=== PATIENT | male | born 1990 | race Caucasian/White ===

== ENCOUNTER 2016-12-16 18:42 | Inpatient (IN) | payer OTHER ==
[2016-12-16] MEDS ORDERED: SODIUM CHLORIDE 0.9% 1,000 ML IV STA (19:34)
[2016-12-16] MEDS ORDERED: SODIUM CHLORIDE 0.9% 500 ML IV STA (19:34)
--- NOTE | 2016-12-16 19:37 | ED ---
General Adult HPI - General Chief complaint: Recheck/Abnormal Lab/Rx Stated complaint: abnormal labs Time Seen by Provider: 12/16/16 19:17 Source: patient, RN notes reviewed Mode of arrival: ambulatory Limitations: no limitations - History of Present Illness Initial comments: 26-year-old male presents for evaluation of nausea vomiting diarrhea. Patient noted over the past several days to have dark urine and light-colored stool. Patient's family member noticed that his eyes were starting to yellow. Patient does admit to one week history of vomiting. This has improved over the past several days. Patient had fever and chills during this time. Denies significant abdominal pain. No recent travel. Patient does consume alcohol several times a month, no heavy alcohol consumption. Patient is not on any medication. No history of Tylenol ingestion. Patient denies any known sick contacts. No recent tattoos. - Related Data Home Medications Medication Instructions Recorded Confirmed Multivitamins, Thera [Multivitamin 1 tab PO DAILY 12/16/16 12/16/16 (formulary)] Allergies Allergy/AdvReac Type Severity Reaction Status Date / Time acetaminophen [From Vicodin] Allergy Unknown Verified 12/16/16 19:22 hydrocodone [From Vicodin] Allergy Unknown Verified 12/16/16 19:22 melon Allergy Unknown Verified 12/16/16 19:22 elastic Allergy Unknown Uncoded 12/16/16 19:00 Review of Systems ROS Statement: Those systems with pertinent positive or pertinent negative responses have been documented in the HPI. ROS Other: All systems not noted in ROS Statement are negative. Past Medical History Past Medical History: Asthma History of Any Multi-Drug Resistant Organisms: None Reported Past Surgical History: No Surgical Hx Reported Past Psychological History: No Psychological Hx Reported Smoking Status: Current every day smoker Past Alcohol Use History: Occasional Past Drug Use History: None Reported General Exam Limitations: no limitations General appearance: alert, in no apparent distress Head exam: Present: atraumatic, normocephalic Eye exam: Present: normal appearance, PERRL, scleral icterus ENT exam: Present: normal exam, mucous membranes dry Neck exam: Present: normal inspection. Absent: tenderness, meningismus Respiratory exam: Present: normal lung sounds bilaterally. Absent: respiratory distress Cardiovascular Exam: Present: regular rate, normal rhythm GI/Abdominal exam: Present: soft. Absent: distended, tenderness, guarding Extremities exam: Present: normal inspection, normal capillary refill. Absent: pedal edema Back exam: Present: normal inspection, full ROM. Absent: tenderness Neurological exam: Present: alert, oriented X3 Psychiatric exam: Present: normal affect, normal mood Skin exam: Present: warm, dry, intact. Absent: cyanosis, diaphoretic Course Vital Signs 12/16/16 12/16/16 18:55 20:09 Temperature 98.1 F Pulse Rate 84 55 L Respiratory 20 16 Rate Blood Pressure 130/84 137/76 O2 Sat by Pulse 99 98 Oximetry Medical Decision Making - Medical Decision Making 26-year-old male with no significant past medical history presents with a one- week history of nausea vomiting, light stools and dark urine. Patient did have some abdominal pain. This is resolved. His nose and vomiting is improving. With urgent care and was sent here for evaluation. Laboratory studies reveal normal white blood cell count 15.3, INR is normal at 1.0, total bili is elevated at 5.6 with 2.7 being conjugated. AST is elevated as well as ALT. UA is positive for dark urine that is 1+ bilirubin. Ultrasound is obtained, shows gallbladder wall is 0.4 cm, normal common bile duct. No concern for cholecystitis at this time given vitals, normal white count, and no right upper quadrant abdominal pain. Hepatitis panel is pending. Patient will be admitted for IV hydration, GI evaluation. - Lab Data Result diagrams: 12/16/16 20:00 12/16/16 20:00 Lab Results 12/16/16 12/16/16 12/16/16 Range/Units 20:00 20:00 20:00 WBC 5.3 (3.8-10.6) k/uL RBC 4.51 (4.30-5.90) m/uL Hgb 13.8 (13.0-17.5) gm/dL Hct 41.3 (39.0-53.0) % MCV 91.6 (80.0-100.0) fL MCH 30.5 (25.0-35.0) pg MCHC 33.3 (31.0-37.0) g/dL RDW 13.1 (11.5-15.5) % Plt Count 162 (150-450) k/uL Neutrophils % 36 % Lymphocytes % 48 % Monocytes % 6 % Eosinophils % 5 % Basophils % 1 % Neutrophils # 1.9 (1.3-7.7) k/uL Lymphocytes # 2.5 (1.0-4.8) k/uL Monocytes # 0.3 (0-1.0) k/uL Eosinophils # 0.2 (0-0.7) k/uL Basophils # 0.1 (0-0.2) k/uL PT (9.0-12.0) sec INR (<1.2) APTT (22.0-30.0) sec Sodium 139 (137-145) mmol/L Potassium 3.5 (3.5-5.1) mmol/L Chloride 100 (98-107) mmol/L Carbon Dioxide 28 (22-30) mmol/L Anion Gap 11 mmol/L BUN 9 (9-20) mg/dL Creatinine 0.70 (0.66-1.25) mg/dL Est GFR (MDRD) Af Amer >60 (>60 ml/min/1.73 sqM) Est GFR (MDRD) Non-Af >60 (>60 ml/min/1.73 sqM) Glucose 101 H (74-99) mg/dL Plasma Lactic Acid Valentino 0.9 (0.7-2.0) mmol/L Calcium 9.5 (8.4-10.2) mg/dL Total Bilirubin 5.6 H (0.2-1.3) mg/dL Conjugated Bilirubin 2.7 H (0.0-0.3) mg/dL Unconjugated Bilirubin 0.9 (0.0-1.1) mg/dL Delta Bilirubin 2.0 H (0.0-0.2) mg/dL AST 1086 H (17-59) U/L ALT 1820 H (21-72) U/L Alkaline Phosphatase 238 H (38-126) U/L Total Protein 7.6 (6.3-8.2) g/dL Albumin 4.2 (3.5-5.0) g/dL Amylase 46 (30-110) U/L Lipase 59 (23-300) U/L Urine Color Urine Appearance (Clear) Urine pH (5.0-8.0) Ur Specific [place] (1.001-1.035) Urine Protein (Negative) Urine Glucose (UA) (Negative) Urine Ketones (Negative) Urine Blood (Negative) Urine Nitrite (Negative) Urine Bilirubin (Negative) Urine Urobilinogen (<2.0) mg/dL Ur Leukocyte Esterase (Negative) 12/16/16 12/16/16 Range/Units 20:00 20:31 WBC (3.8-10.6) k/uL RBC (4.30-5.90) m/uL Hgb (13.0-17.5) gm/dL Hct (39.0-53.0) % MCV (80.0-100.0) fL MCH (25.0-35.0) pg MCHC (31.0-37.0) g/dL RDW (11.5-15.5) % Plt Count (150-450) k/uL Neutrophils % % Lymphocytes % % Monocytes % % Eosinophils % % Basophils % % Neutrophils # (1.3-7.7) k/uL Lymphocytes # (1.0-4.8) k/uL Monocytes # (0-1.0) k/uL Eosinophils # (0-0.7) k/uL Basophils # (0-0.2) k/uL PT 10.4 (9.0-12.0) sec INR 1.0 (<1.2) APTT 23.5 (22.0-30.0) sec Sodium (137-145) mmol/L Potassium (3.5-5.1) mmol/L Chloride (98-107) mmol/L Carbon Dioxide (22-30) mmol/L Anion Gap mmol/L BUN (9-20) mg/dL Creatinine (0.66-1.25) mg/dL Est GFR (MDRD) Af Amer (>60 ml/min/1.73 sqM) Est GFR (MDRD) Non-Af (>60 ml/min/1.73 sqM) Glucose (74-99) mg/dL Plasma Lactic Acid Valentino (0.7-2.0) mmol/L Calcium (8.4-10.2) mg/dL Total Bilirubin (0.2-1.3) mg/dL Conjugated Bilirubin (0.0-0.3) mg/dL Unconjugated Bilirubin (0.0-1.1) mg/dL Delta Bilirubin (0.0-0.2) mg/dL AST (17-59) U/L ALT (21-72) U/L Alkaline Phosphatase (38-126) U/L Total Protein (6.3-8.2) g/dL Albumin (3.5-5.0) g/dL Amylase (30-110) U/L Lipase (23-300) U/L Urine Color Dark Yellow Urine Appearance Clear (Clear) Urine pH 8.0 (5.0-8.0) Ur Specific [place] 1.007 (1.001-1.035) Urine Protein Negative (Negative) Urine Glucose (UA) Negative (Negative) Urine Ketones Negative (Negative) Urine Blood Negative (Negative) Urine Nitrite Negative (Negative) Urine Bilirubin 1+ H (Negative) Urine Urobilinogen <2.0 (<2.0) mg/dL Ur Leukocyte Esterase Negative (Negative) Disposition Clinical Impression: Acute hepatitis Disposition: ADMITTED IP TO THIS [facility] Condition: Stable Referrals: Edda Hess DO [Primary Care Provider] - 1-2 days Decision to Admit Reason: Admit from EC Decision Date: 12/16/16 Decision Time: 21:47
[2016-12-16 20:18] LABS: Basophils # (A) 0.1 k/uL (0-0.2); Basophils % (A) 1 %; CH 30.9; CHCM 33.9; Eosinophils # (A) 0.2 k/uL (0-0.7); Eosinophils % (A) 5 %; HCT 41.3 % (39.0-53.0); HDW 2.69; HGB 13.8 gm/dL (13.0-17.5); Luc # (Auto) 0.21; Luc % (Auto) 4; Lymphocytes # (A) 2.5 k/uL (1.0-4.8); Lymphocytes % (A) 48 %; MCH 30.5 pg (25.0-35.0); MCHC 33.3 g/dL (31.0-37.0); MCV 91.6 fL (80.0-100.0); Mean Platelet Volume 8.5; Monocytes # (A) 0.3 k/uL (0-1.0); Monocytes % (A) 6 %; Neutrophils # (A) 1.9 k/uL (1.3-7.7); Neutrophils % (A) 36 %; RBC 4.51 m/uL (4.30-5.90); RDW 13.1 % (11.5-15.5); WBC 5.3 k/uL (3.8-10.6); WBC (Perox) 4.91
[2016-12-16 20:22] LABS: Appearance,Urine Clear (Clear); Bilirubin,Urine 1+ (Negative); Glucose,Urine (UA) Negative (Negative); Ketones,Urine Negative (Negative); Leukocyte Esterase,Urine Negative (Negative); Nitrite,Urine Negative (Negative); Protein,Urine Negative (Negative); Specific Gravity,Urine 1.007 (1.001-1.035); UA Billing (MACRO vs. MICRO) CHEM; Urobilinogen,Urine <2.0 mg/dL (<2.0)
[2016-12-16 20:27] LABS: Alkaline Phosphatase 238 U/L (38-126); Amylase 46 U/L (30-110); Anion Gap 11 mmol/L; Blood Urea Nitrogen 9 mg/dL (9-20); Calcium 9.5 mg/dL (8.4-10.2); Carbon Dioxide 28 mmol/L (22-30); Chloride 100 mmol/L (98-107); Glucose 101 mg/dL (74-99); Non-African American GFR(MDRD) >60 (>60 ml/min/1.73 sqM); Potassium 3.5 mmol/L (3.5-5.1); Sodium 139 mmol/L (137-145); Total Bilirubin 5.6 mg/dL (0.2-1.3); Total Protein 7.6 g/dL (6.3-8.2)
[2016-12-16 20:42] LABS: ALT 1820 U/L (21-72); AST 1086 U/L (17-59)
[2016-12-16 20:48] LABS: Partial Thromboplastin Time 23.5 sec (22.0-30.0); Prothrombin Time 10.4 sec (9.0-12.0)
--- NOTE | 2016-12-16 21:41 | US ---
EXAMINATION TYPE: US abdomen limited DATE OF EXAM: 12/16/2016 COMPARISON: NONE CLINICAL HISTORY: abdominal pain. EXAM MEASUREMENTS: Liver Length: 13.7 cm Gallbladder Wall: 0.4 cm CBD: 0.2 cm Right Kidney: 10.3 x 4.6 x 5.0 cm Nausea, vomiting and RUQ pain x 3 days. Pancreas: Tail obscured by overlying bowel gas, duct somewhat prominent at 3mm. This appears within normal limits at the level measured. Liver: wnl Gallbladder: wall slightly thickened, patient states he last ate 6 hours prior gallbladder appears c ontracted. Evidence for sonographic Rothman's sign: no CBD: wnl Right Kidney: wnl IMPRESSION: 1. Mild wall thickening of the gallbladder. The gallbladder appears somewhat contracted although slava ent is 6 hours nothing by mouth. Consider cholecystitis within the differential.
[2016-12-16] MEDS ORDERED: NALOXONE 0.4 MG/ML 1 ML VIAL IV PRN (21:43)
[2016-12-16] MEDS: SODIUM CHLORIDE 0.9% 1,000 ML IV SCH (21:54)
[2016-12-16] MEDS ORDERED: ONDANSETRON 4 MG/2 ML VIAL IVP STA (21:55)
[2016-12-16] MEDS ORDERED: FAMOTIDINE 20 MG/2 ML VIAL IV STA (22:40)
[2016-12-16 23:58] VITALS: BMI 23.6
[2016-12-17 07:16] LABS: Prothrombin Time 10.4 sec (9.0-12.0)
[2016-12-17 07:23] LABS: Aty Lym Flag Slight; CH 30.9; CHCM 32.7; HCT 37.9 % (39.0-53.0); HDW 2.64; HGB 12.4 gm/dL (13.0-17.5); MCH 30.9 pg (25.0-35.0); MCHC 32.6 g/dL (31.0-37.0); MCV 95.1 fL (80.0-100.0); Mean Platelet Volume 8.7; RBC 3.99 m/uL (4.30-5.90); RDW 13.2 % (11.5-15.5); WBC 4.9 k/uL (3.8-10.6); WBC (Perox) 4.32
[2016-12-17 07:39] LABS: Alkaline Phosphatase 194 U/L (38-126); Anion Gap 9 mmol/L; Blood Urea Nitrogen 5 mg/dL (9-20); Calcium 8.4 mg/dL (8.4-10.2); Carbon Dioxide 24 mmol/L (22-30); Chloride 107 mmol/L (98-107); Glucose 94 mg/dL (74-99); Non-African American GFR(MDRD) >60 (>60 ml/min/1.73 sqM); Potassium 3.9 mmol/L (3.5-5.1); Sodium 140 mmol/L (137-145); Total Bilirubin 5.3 mg/dL (0.2-1.3); Total Protein 6.2 g/dL (6.3-8.2)
[2016-12-17 07:42] LABS: Add Differential Manual Differential
[2016-12-17 07:44] LABS: Nucleated Red Blood Cells 0 /100 WBC (0-0); Polychromasia Present; Total Cells Counted 100
[2016-12-17 07:45] LABS: AST 749 U/L (17-59)
[2016-12-17 07:48] LABS: ALT 1375 U/L (21-72)
[2016-12-17] MEDS: SODIUM CHLORIDE 0.9% 1,000 ML IV SCH ×3 (08:16→22:26)
--- NOTE | 2016-12-17 11:26 | CONS ---
CONSULTATION DATE OF CONSULTATION: 12/17/2016 REQUESTING PHYSICIAN: Dr. Edda Michaels. REASON FOR CONSULTATION: Acute hepatitis. HISTORY OF PRESENT ILLNESS: The patient is a 26-year-old pleasant white male admitted to the hospital when he presented with nausea, vomiting, not feeling well for the last 1 week duration. He has some vague epigastric discomfort. Two days ago he started noticing yellowish discoloration of his skin as well as dark-colored urine. Some of the family members noticed that his eyes were also yellow and he came into the emergency room and subsequently admitted to the hospital with acute hepatitis, was noted to have acute elevation of serum transaminases. He denies any recent travel history. Denies any intravenous drug use. No recent blood transfusions. No antibiotic use. Denies taking any [id number] medications or prescription medications in the last few months. He reports no Tylenol intake. None of his household members have been sick recently. PAST MEDICAL HISTORY: Significant for asthma. PAST SURGICAL HISTORY: None. MEDICATIONS: At home none other than multivitamin. ALLERGIES: TO VICODIN. SOCIAL HISTORY: Chronic smoker but no alcohol use. FAMILY HISTORY: Unremarkable. REVIEW OF SYSTEMS: Cardiopulmonary: No chest pain, shortness of breath. Genitourinary: No dysuria, hematuria. Musculoskeletal unremarkable. Skin unremarkable. Psychiatric unremarkable. Neurology unremarkable. ENT vision unremarkable. Constitutional no recent weight loss. No fever, chills, night sweats. PHYSICAL EXAMINATION: Blood pressure is 109/60, pulse 61, temperature 97.8. HEENT examination unremarkable. Conjunctivae pink. Sclerae anicteric. Oral cavity no lesions. Neck: No jugular venous distention or lymph node enlargement. Chest clear to auscultation. HEART: Regular rate and rhythm. ABDOMEN: Soft, nontender, nondistended. Bowel sounds are positive. No organomegaly. Extremities: No pedal edema. Skin no rashes. NEUROLOGIC: Alert and oriented times three. No focal deficits. LABORATORY DATA: WBC 5.3, hemoglobin 13.8, platelets normal. PT/INR is within normal limits. AST 1086, ALT 1820, alkaline phosphatase 238, and T-bilirubin is 5.6. This morning T-bilirubin is 5.3, AST is down to 749, ALT is down to 1395. Amylase and Lipase are normal. IMPRESSION: The patient has vague abdominal pain associated with nausea, vomiting, diarrhea of one week duration and yellowish discoloration of skin for the last 2 days and noted to have elevated serum transaminases consistent with acute hepatitis, probably acute viral hepatitis. He has not taken any medications in the last several weeks including Tylenol and does not have any history of alcohol abuse. His serum transaminases are somewhat improved today and clinically patient appears very stable. RECOMMENDATION: 1. We will obtain hepatitis viral serologies for A, B, and C as well as VENTURA IgM antibody in view of lymphocytosis. 2. Advance to regular diet. 3. Await results of ultrasound of the abdomen and we will follow him closely during his hospital stay. Thank you for this consultation. KIM / BENN: [id number] /
--- NOTE | 2016-12-17 16:53 | HP ---
HISTORY AND PHYSICAL DATE OF ADMISSION: 12/16/16. DATE OF SERVICE: 12/17/16 PRESENTING COMPLAINT: Vomiting. HISTORY OF PRESENTING COMPLAINT: This is a pleasant 26-year-old, patient of Dr. Hess. The patient presents with nausea, vomiting and diarrhea going on for about a week. Patient noticed pale stools and dark colored urine. Was jaundice and decided to come in. 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 Patient in July of this year did get negative for STD. The patient is a male homosexual and the last unprotected sex was in September of this year x1. Now he has a new partner though his new partner has been negative for STDs. Patient also states he was tested negative for HIV. REVIEW OF SYSTEMS: CONSTITUTIONAL: Tired. HEENT: None. RESPIRATORY: None. CARDIOVASCULAR: None. GASTROINTESTINAL: Patient had abdominal pain, nausea, vomiting, diarrhea. GENITOURINARY: None. MUSCULOSKELETAL: None DERMATOLOGICAL: Tattoos. LYMPHATIC: None. PSYCHIATRY: None. NEUROLOGICAL: None. PAST MEDICAL HISTORY: Asthma. PAST SURGICAL HISTORY: None. SOCIAL HISTORY: Patient lives with his parents and brother and is sexually active with boyfriend called Pranav. He works at the [employer]. He smokes about 3 cigarettes a day. Occasional marijuana. Alcohol rarely. FAMILY HISTORY: Diabetes. HOME MEDICATIONS: Multivitamins. ALLERGIES: VICODIN, ELASTIC. PHYSICAL EXAMINATION: On examination, vital signs on presentation: Temperature 98.1, pulse 84, respirations 20, blood pressure 130/84, pulse ox 99% on room air. GENERAL APPEARANCE: Average built, lying in bed, tired appearing. EYES: Icterus present. Pupils equal. HEENT: External appearance of nose and ears normal. Oral cavity normal. NECK: JVD not raised. Mass not palpable. RESPIRATORY: Effort normal. Lungs are clear. CARDIOVASCULAR: 1st and 2nd sounds. No edema. ABDOMEN: Soft, mild upper quadrant tenderness. No guarding or rigidity. Liver and spleen not palpable. LYMPHATIC: No lymph node palpable in the neck or axillae. PSYCHIATRY: Alert and oriented x3. Mood and affect normal. NEUROLOGICAL: Pupils equal. Cranial nerves grossly intact. Power and sensation grossly intact. INVESTIGATIONS: Admission labs: White count 5.8, hemoglobin 13.8, platelets 162. Potassium 3.5. BUN and creatinine normal. Bilirubin 5.8, repeat 5.3. AST was 108, repeat 749. ALT 1820, repeat 1375. Alkaline phosphatase 238. Amylase and lipase normal. ASSESSMENT: 1. Acute hepatitis in a patient who has been in contact with close to 500 kids he says an could well be hepatitis A which is transfer of fecal oral route given that his other tests were negative makes this likely the culprit. Other causes do need to be ruled out. 2. Recreational marijuana use. 3. Dehydration clinically. PLAN: Patient's hepatitis panel will be sent off. Dr. Davis from GI was consulted. Patient will be put on IV fluids. The patient was told to have a soft diet. Care was discussed. MMLIUL / BENN: [id number] /
[2016-12-18 07:48] LABS: AST 528 U/L (17-59); Alkaline Phosphatase 229 U/L (38-126); Anion Gap 10 mmol/L; Blood Urea Nitrogen 5 mg/dL (9-20); Calcium 8.6 mg/dL (8.4-10.2); Carbon Dioxide 21 mmol/L (22-30); Chloride 110 mmol/L (98-107); Glucose 97 mg/dL (74-99); Non-African American GFR(MDRD) >60 (>60 ml/min/1.73 sqM); Potassium 4.1 mmol/L (3.5-5.1); Sodium 141 mmol/L (137-145); Total Protein 6.5 g/dL (6.3-8.2)
[2016-12-18 07:55] LABS: ALT 1196 U/L (21-72)
[2016-12-18 07:57] LABS: Aty Lym Flag Slight; CH 30.6; CHCM 32.2; HGB 12.8 gm/dL (13.0-17.5); MCH 30.6 pg (25.0-35.0); MCHC 31.9 g/dL (31.0-37.0); MCV 95.6 fL (80.0-100.0); Mean Platelet Volume 8.6; RBC 4.18 m/uL (4.30-5.90); RDW 13.5 % (11.5-15.5); WBC 5.9 k/uL (3.8-10.6)
[2016-12-18 08:26] LABS: Add Differential Manual Differential
[2016-12-18 08:32] LABS: Nucleated Red Blood Cells 0 /100 WBC (0-0); Total Cells Counted 100
[2016-12-18 08:34] LABS: Manual Review Performed; RBC Morphology Normal
[2016-12-18] MEDS: SODIUM CHLORIDE 0.9% 1,000 ML IV SCH ×3 (09:11→23:02)
--- NOTE | 2016-12-18 14:15 | PN ---
PROGRESS NOTE DATE OF SERVICE: 12/18/16 The patient is a 26-year-old pleasant white male admitted to the hospital with acute hepatitis, who presents to the hospital with abdominal discomfort, nausea, vomiting, flu-like symptoms for the last 1 week duration. He was noted to have elevated serum transaminases with ALT and AST in the range of 0989-4065. He had hepatitis serologies done and hepatitis A IgM antibody was reported as positive. He is better today. He denies any symptoms. No abdominal pain. No nausea, vomiting. PHYSICAL EXAMINATION: Appears comfortable in no apparent distress. VITAL SIGNS: Stable. Blood pressure is 119/62, pulse is 65, temperature 96.8. HEENT examination unremarkable. Conjunctivae pink. Sclerae anicteric. Oral cavity no lesions. Neck no jugular venous distention or lymph node enlargement. Chest was clear to auscultation. HEART: Regular rate and rhythm. ABDOMEN: Soft. Bowel sounds are positive. No organomegaly. Extremities no pedal edema. Skin no rashes. NEUROLOGIC: Alert and oriented x3. No focal deficits. LABS: From today, WBC 5.9, hemoglobin 12.8, platelets 177. AST 528, ALT 1196, T-bilirubin is 5, alkaline phosphatase is 229. INR 1. IMPRESSION: Acute hepatitis A infection with elevated serum transaminases. Clinically, patient is very stable. INR is 1 yesterday. Serum transaminases are gradually improving today AST is 528 and ALT is 196. RECOMMENDATIONS: Discussed with the patient about acute hepatitis A infection and his clinical condition and prognosis. Since he does not have any underlying liver disease the patient should have an excellent prognosis and full recovery in the next few weeks. We will repeat labs tomorrow morning and if stable, he can be discharged home with outpatient follow up in a week. MMODL / IJN: [id number] /
[2016-12-18] MEDS ORDERED: IBUPROFEN 400 MG TAB PO PRN (18:55)
[2016-12-19] MEDS: SODIUM CHLORIDE 0.9% 1,000 ML IV SCH ×2 (05:59→14:05)
--- NOTE | 2016-12-19 06:10 | PN ---
PROGRESS NOTE DATE OF SERVICE: December 18, 2016 PRESENTING COMPLAINT: Vomiting. INTERVAL HISTORY: This patient presented with acute hepatitis which now come back to be hepatitis A. Nausea and vomiting better. Patient started to eat a bit better. No abdominal pain. REVIEW OF SYSTEMS: Done for constitutional, cardiovascular, GI, pulmonary and relevant findings as above. CURRENT MEDICATIONS: Reviewed that include IV fluids. PHYSICAL EXAMINATION: Temperature 97.5, pulse 48, respiratory 18, blood pressure 123/67, pulse ox 98% on room air. Eyes icterus present. NECK: JVD not raised. Mass not palpable. Respiratory effort lungs are clear. Cardiovascular first and second sounds normal. No edema. ABDOMEN: Soft, nontender. Liver and spleen not palpable. PSYCHIATRY: Alert and oriented x3. Mood and affect normal. INVESTIGATIONS: White count 5.9. AST 528, ALT 1196. ASSESSMENT: 1. Acute hepatitis A severe infection, present on admission with biochemistry, slowly improving. 2. Recreational marijuana use. 3. Dehydration upon presentation. PLAN: Will repeat the labs in the morning. Otherwise patient doing better. Did discuss with Dr. Maya Davis. MMLIUL / IJN: [id number] /
[2016-12-19 07:37] VITALS: BP 137/78; PULSE 75; RESP 17; TEMP 97.1
[2016-12-19 10:08] LABS: ALT 959 U/L (21-72); AST 330 U/L (17-59); Alkaline Phosphatase 265 U/L (38-126); Anion Gap 10 mmol/L; Blood Urea Nitrogen 6 mg/dL (9-20); Calcium 8.8 mg/dL (8.4-10.2); Carbon Dioxide 23 mmol/L (22-30); Chloride 109 mmol/L (98-107); Glucose 134 mg/dL (74-99); Non-African American GFR(MDRD) >60 (>60 ml/min/1.73 sqM); Potassium 4.2 mmol/L (3.5-5.1); Sodium 142 mmol/L (137-145); Total Bilirubin 3.4 mg/dL (0.2-1.3); Total Protein 6.9 g/dL (6.3-8.2)
--- NOTE | 2016-12-19 10:42 | P.PN ---
Subjective Progress Note Date: 12/19/16 Principal diagnosis: Acute hepatitis A Admitted with acute hepatitis A. Feels well. Denies pain. Afebrile. Tolerating diet. Liver chemistries improving. Total bilirubin 3.4. EBV capsid Ag IgM antibody 61.8. Objective - Vital Signs Vital signs: Vital Signs Temp 97.1 F L 12/19/16 07:00 Pulse 75 12/19/16 07:00 Resp 17 12/19/16 07:00 BP 137/78 12/19/16 07:00 Pulse Ox 98 12/19/16 07:00 Intake & Output 12/18/16 12/19/16 12/19/16 18:59 06:59 18:59 Intake Total 240 Balance 240 Weight 67.5 kg Intake: Oral 240 Other: Voiding Method Toilet Toilet # Voids 1 2 # Bowel Movements 0 - Exam General appearance: The patient is alert, oriented, in no acute distress. Jaundice. HET: Head is normocephalic and atraumatic. Pupils are equal and reactive. Sclerae icterus. Oropharynx is clear without lesions. Neck: Supple without lymphadenopathy. Trachea midline. Heart: S1 S2. Regular rate and rhythm. Lungs: No crackles or wheezes are heard. Abdomen: Soft, nontender, nondistended with bowel sounds. No peritoneal signs. No palpable organomegaly or masses. Extremities: Normal skin color and turgor. No cyanosis, rash, ulceration, clubbing, or edema. Radial and pedal pulses are 2/4 bilaterally. Neurological: No focal deficits. Strength and sensation are grossly intact. - Labs CBC & Chem 7: 12/18/16 06:49 12/19/16 08:45 Labs: Abnormal Lab Results - Last 24 Hours (Table) 12/18/16 12/19/16 Range/Units 06:49 08:45 Chloride 109 H (98-107) mmol/L BUN 6 L (9-20) mg/dL Glucose 134 H (74-99) mg/dL Total Bilirubin 3.4 H (0.2-1.3) mg/dL AST 330 H (17-59) U/L ALT 959 H (21-72) U/L Alkaline Phosphatase 265 H (38-126) U/L EBV Capsid Ag IgM Ab 61.8 H (<36.0) U/mL Assessment and Plan (1) Acute hepatitis A Current Visit: Yes Status: Acute Code(s): B15.9 - HEPATITIS A WITHOUT HEPATIC COMA SNOMED Code(s): 81349402 (2) EBV hepatitis Narrative/Plan: Possible superimposed acute EBV hepatitis possible reactivation with positive EBV capsid antigen IgM antibody Current Visit: Yes Status: Acute Code(s): B27.09 - GAMMAHERPESVIRAL MONONUCLEOSIS WITH OTHER COMPLICATIONS; B17.8 - OTHER SPECIFIED ACUTE VIRAL HEPATITIS SNOMED Code(s): 834492642 Plan: 1. Supportive measures. Discharge per medicine. Follow with primary in 3-5 days. [place] precautions. Assessment and plan of care discussed with Dr. Davis.
--- NOTE | 2016-12-19 22:01 | P.DS ---
Providers Date of admission: 12/16/16 21:43 Expected date of discharge: 12/19/16 Attending physician: Patrice Gracia Consults: 12/16/16 21:43 Consult Physician Routine Consulting Provider: Yocasta Davis Consult Reason/Comments: Acute hepatitis, jaundice Do you want consulting provider notified?: Yes, Notify in am Primary care physician: Edda Hess Hospital Course: FINAL DIAGNOSES: -Acute hepatitis the patient has been in contact with about 500 kids, could be hepatitis A which is transfer of fecal oral route given that his other tests were negative makes this the likely culprit -Recreational marijuana use -Dehydration clinically HOSPTIAL COURSE: 26-year-old male who presents with nausea vomiting diarrhea for the previous week. Patient noticed pale stools and dark colored urine had a jaundice coloring to his skin tone decided to come in. Admitted for the same. IV fluids initiated, hepatitis panel sent, GI consulted. Currently have EBV hepatitis possibly superimposed, possible reactivation. Continued supportive measures of IV fluids, liver enzymes improving, tolerating his diet, ambulatory in the room and hallway. Anxious to go home. Present symptoms improved significantly and therefore patient is stable for discharge. PHYSICAL EXAM: CARDIOVASCULAR: First and second sounds noted no edema RESPIRATORY: Respiratory effort normal lung sounds clear to auscultation GI: Abdomen soft nontender liver and spleen not palpable PSYCHIATRY: Alert and oriented 3 mood and affect normal. Patient was seen and examined by nurse practitioner Joanie Edmond in all elements of the case discussed with attending Dr. Gracia DISPOSITION: Discharge home to care family. Patient Condition at Discharge: Stable Plan - Discharge Summary New Discharge Prescriptions: No Action Multivitamins, Thera [Multivitamin (formulary)] 1 tab PO DAILY Discharge Medication List Multivitamins, Thera [Multivitamin (formulary)] 1 tab PO DAILY 12/16/16 [History ] Follow up Appointment(s)/Referral(s): Edda Hess DO [Primary Care Provider] - 12/27/16 3:00 pm Yocasta Davis MD [STAFF PHYSICIAN] - 01/11/17 4:30 pm Ambulatory/Diagnostic Orders: Comprehensive Metabolic Panel [LAB.AMB] Time Frame: 1 Week, Location: Determined By Patient Patient Instructions/Handouts: Hepatitis A (DC) Activity/Diet/Wound Care/Special Instructions: Regular diet. Hepatitis and Aleksander Horn precautions. Discharge Disposition: HOME SELF-CARE
--- NOTE | 2016-12-20 07:56 | DS ---
DISCHARGE SUMMARY DATE OF SERVICE: 12/19/2016 ATTENDING NOTE: Patient was seen and examined by me. I discussed with my nurse practitioner, Ms. Edmond. The patient doing well. No nausea, vomiting or diarrhea. Abdomen soft nontender. The patient antibodies came back positive hepatitis A and Aleksander-Bar virus, both IgM type. FINAL DIAGNOSIS: 1. Acute hepatitis A. 2. Aleksander-Horn virus IgM positive. PLAN: Patient will be discharged. Patient is going to follow up with Dr. Edi Davis in the office. Care was discussed with the patient. Patient's labs today showed a AST down to 330 and ALT down to 959. Additionally, patient's hepatitis B, C, HIV, all tests have come back negative. MMODL / IJN: [id number] /
== END 2016-12-19 16:08 | disposition home or self-care (01) | DRG 443 ==
LOC: EC 18:42 → 5MS5E 21:43 → 4MS4W 12-18 09:33
PROVIDERS: ADMIT Hospitalist; ATTEND Hospitalist
DX: B15.9 Hepatitis A without hepatic coma (principal); B27.00 Gammaherpesviral mononucleosis without complication; E86.0 Dehydration; F12.90 Cannabis use, unspecified, uncomplicated; F17.210 Nicotine dependence, cigarettes, uncomplicated; J45.909 Unspecified asthma, uncomplicated; Z88.6 Allergy status to analgesic agent; Z88.5 Allergy status to narcotic agent; Z88.8 Allergy status to other drugs, medicaments and biological substances
CPT/HCPCS: 36415; 76705; 80053; 80074; 81003; 82150; 82248; 83605; 83690; 85025; 85610; 85730; 86665; 87390; 96361; 96374; 99284